=== PATIENT | female | born 1990 | race Caucasian/White ===

== ENCOUNTER → 2018-09-08 | Outpatient (CLI) | payer OTHER ==
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
== END | disposition home or self-care (01) ==
LOC: RAD 09:23
PROVIDERS: ATTEND Surgery
DX: M54.6 Pain in thoracic spine (principal); G89.29 Other chronic pain; L40.50 Arthropathic psoriasis, unspecified
CPT/HCPCS: 72072